=== PATIENT | female | born 1945 | race Caucasian/White ===

== ENCOUNTER → 2017-12-29 | Outpatient (CLI) | payer MEDICARE | END | disposition home or self-care (01) | LOC: RAH 13:33 | PROVIDERS: ATTEND Family Medicine | DX: Z12.31 Encounter for screening mammogram for malignant neoplasm of breast (principal) | CPT/HCPCS: 77067 ==

== ENCOUNTER → 2018-02-27 | Outpatient (CLI) | payer MEDICARE | END | disposition home or self-care (01) | LOC: SHCH 15:33 | PROVIDERS: ATTEND Internal Medicine Cardiovascular Disease | DX: I31.3 Pericardial effusion (noninflammatory) (principal); I25.10 Atherosclerotic heart disease of native coronary artery without angina pectoris; I10 Essential (primary) hypertension; R06.00 Dyspnea, unspecified | CPT/HCPCS: 93306 ==

== ENCOUNTER → 2018-03-15 | Outpatient (CLI) | payer MEDICARE | END | disposition home or self-care (01) | LOC: RAH 09:51 | PROVIDERS: ATTEND Internal Medicine | DX: R19.7 Diarrhea, unspecified (principal) | CPT/HCPCS: 74021 ==

== ENCOUNTER 2018-04-16 07:02 | Observation (INO) | payer MEDICARE ==
[2018-04-12 10:59] LABS: BASOPHILS % (AUTO) 1.3 % (0.0-5.0); EOSINOPHILS % (AUTO) 5.1 % (0.0-8.0); HEMATOCRIT 40.2 % (36-48); LYMPHOCYTES % (AUTO) 18.5 % (21.0-51.0); MEAN CORPUSCULAR HEMOGLOBIN 28.5 pg (27.0-33.0); MEAN CORPUSCULAR HGB CONC 33.5 g/dL (32.0-36.0); MEAN CORPUSCULAR VOLUME 85.2 fL (79-99); MONOCYTES % (AUTO) 9.5 % (3.0-13.0); NEUTROPHILS % (AUTO) 65.6 % (40.0-77.0); NUCLEATED RED BLOOD CELLS 0.1 % (0.0-0.19); PLATELET COUNT (AUTO) 278 K/uL (130-400); RED BLOOD CELL COUNT(AUTO) 4.72 MIL/uL (4.00-5.50); WHITE BLOOD COUNT (AUTO) 5.4 K/uL (4.8-10.8)
[2018-04-12 11:04] LABS: CREATININE 1.5 mg/dL (0.5-1.5); POTASSIUM 4.1 mmol/L (3.5-5.1)
[2018-04-12 11:33] VITALS: BP 136/55
[2018-04-12 11:42] LABS: INR 0.95 (0.85-1.15); PARTIAL THROMBOPLASTIN TIME 27.3 SEC (26.3-35.5)
[2018-04-16] VITALS (15 sets, daily range): BP systolic 126–198; BP diastolic 60–94
[~2018-04-16] VITALS: Ht 157.5 cm; Wt 62.1 kg
[~2018-04-16 07:02] MED LIST: BENIFIBER PO; DOXY50TA2 PO; FAMO40TA7 PO; IBUP-2353 PO; LORA-868 PO; METR60CR TP; TRU BIOTICS PO; VALS1TAB81 PO
[2018-04-16] MEDS ORDERED: CEFAZOLIN SODIUM 1 GM VIAL IVP ONE (08:00)
[2018-04-16] MEDS ORDERED: SODIUM CHLORIDE 0.9% 1000ML 1,000 ML IV SCH (08:00)
[2018-04-16] MEDS ORDERED: BUPIVACAINE/PF 0.25% 50ML VIAL IJ ONE (12:01)
[2018-04-16] MEDS ORDERED: MEPERIDINE-PF 25 MG/ML SYG ONE ×2 (12:02→12:52)
[2018-04-16] MEDS ORDERED: CEFAZOLIN SODIUM 1 GM VIAL ONE (12:02)
[2018-04-16] MEDS ORDERED: MIDAZOLAM HCL 1 MG/ML 2ML VIAL ONE ×2 (12:02→12:52)
[2018-04-16] MEDS ORDERED: LIDOCAINE HCL 1% MDV 50ML VIAL ONE (12:02)
[2018-04-16] MEDS ORDERED: VANCOMYCIN 1GM+NS 250ML 0 ML IV ONE (12:06)
[2018-04-16] MEDS ORDERED: OCTYL 2-CYANOACRYLATE 1 EACH TP ONE (13:37)
[2018-04-16] MEDS ORDERED: ACETAMINOPHEN-CODEINE 300/30MG TAB PO PRN ×2 (14:00)
[2018-04-16] MEDS ORDERED: METRONIDAZOLE 1% TP SCH (14:00)
[2018-04-16] MEDS ORDERED: ONDANSETRON HCL 4 MG/2 ML VIAL IV PRN (14:00)
[2018-04-16] MEDS ORDERED: MORPHINE SULFATE 4 MG/1ML SYG IV PRN (19:15)
[2018-04-16] MEDS ORDERED: MORPHINE SULFATE 2 MG/ML 1ML SYG IV PRN (19:15)
[2018-04-16] MEDS ORDERED: HYDRALAZINE HCL 20 MG/ML VIAL IV PRN (19:15)
[2018-04-16] MEDS ORDERED: ONDANSETRON HCL MDV 20ML 2 MG/ML VIAL IVP PRN (19:15)
[2018-04-16] MEDS ORDERED: ACETAMINOPHEN EXTRA STRENGTH 500 MG TABLET PO PRN (19:15)
[2018-04-16] MEDS ORDERED: TEMAZEPAM 15 MG CAPSULE PO PRN (19:30)
[2018-04-16] MEDS ORDERED: FAMOTIDINE 20MG TAB 20 MG TAB PO SCH (21:00)
[2018-04-17 00:44] VITALS: BP 170/77
[2018-04-17] MEDS ORDERED: SODIUM CHLORIDE 0.9% 1000ML 1,000 ML IV ONE (00:57)
[2018-04-17 03:44] VITALS: BP 151/61
[2018-04-17 05:02] LABS: CREATININE 1.3 mg/dL (0.5-1.5); POTASSIUM 3.7 mmol/L (3.5-5.1)
[2018-04-17] MEDS ORDERED: CEFAZOLIN SODIUM 1 GM VIAL IVP ONE (06:00)
[2018-04-17] MEDS ORDERED: SODIUM CHLORIDE 0.9% 1000ML 1,000 ML IV SCH (06:00)
[2018-04-17 07:00] VITALS: BP 169/61
[2018-04-17] MEDS ORDERED: CEFAZOLIN SODIUM 1 GM VIAL ONE (07:57)
[2018-04-17] MEDS ORDERED: PSEUDOEPHEDRINE PO SCH (09:00)
[2018-04-17] MEDS ORDERED: [UNRECOGNIZED DRUG - OTHER] PO SCH (09:00)
[2018-04-17] MEDS ORDERED: PANTOPRAZOLE SODIUM 40 MG TABLET.DR PO SCH (09:00)
[2018-04-17] MEDS ORDERED: LORATADINE PO SCH (09:00)
[2018-04-17] MEDS ORDERED: METRONIDAZOLE 1% PO SCH (09:00)
[2018-04-17] MEDS ORDERED: DOXYCYCLINE HYCLATE 100 MG TABLET PO SCH (12:00)
[2018-04-17] MEDS ORDERED: TRU BIOTICS PO SCH (21:00)
== END 2018-04-17 11:20 | disposition home or self-care (01) ==
LOC: DAH 07:02 → DAHIP 07:03 → 2AH 16:45
PROVIDERS: ADMIT Internal Medicine Cardiovascular Disease; ATTEND Internal Medicine Cardiovascular Disease
DX: I49.5 Sick sinus syndrome (principal); I10 Essential (primary) hypertension; E78.5 Hyperlipidemia, unspecified; K21.9 Gastro-esophageal reflux disease without esophagitis; Z95.0 Presence of cardiac pacemaker; Z82.49 Family history of ischemic heart disease and other diseases of the circulatory system; Z82.5 Family history of asthma and other chronic lower respiratory diseases; Z79.01 Long term (current) use of anticoagulants
CPT/HCPCS: 33208; 36415 ×2; 71046; 80048 ×2; 85025; 85610; 85730; 93005; 96374; 96375; A4606; C1785; C1894 ×2; C1898 ×2; G0378 ×28; J0360; J0690 ×3; J2175 ×2; J2250 ×2; J3490 ×2; J7030 ×2; 33207; 99156; 99157; J3370

== ENCOUNTER → 2018-12-31 | Outpatient (CLI) | payer MEDICARE | END | disposition home or self-care (01) | LOC: RAH 10:19 | PROVIDERS: ATTEND Family Medicine | DX: Z12.31 Encounter for screening mammogram for malignant neoplasm of breast (principal) | CPT/HCPCS: 77067 ==

== ENCOUNTER → 2020-03-02 | Outpatient (CLI) | payer MEDICARE ==
[~2020-03-02] MED LIST changes: -DOXY50TA2 PO; +DOXY50TA3 PO; -IBUP-2353 PO; +IBUP-2784 PO
== END | disposition home or self-care (01) ==
LOC: RAH 12:49
PROVIDERS: ATTEND Family Medicine
DX: Z12.31 Encounter for screening mammogram for malignant neoplasm of breast (principal); E04.2 Nontoxic multinodular goiter
CPT/HCPCS: 76536; 77067

== ENCOUNTER → 2021-04-07 | Outpatient (CLI) | payer MEDICARE | END | disposition home or self-care (01) | LOC: RAH 09:32 | DX: Z12.31 Encounter for screening mammogram for malignant neoplasm of breast (principal) | CPT/HCPCS: 77067 ==

== ENCOUNTER → 2021-12-24 | Outpatient (CLI) | payer MEDICARE | END | disposition home or self-care (01) | LOC: SHCH 09:56 | PROVIDERS: ATTEND Internal Medicine Cardiovascular Disease | DX: I35.1 Nonrheumatic aortic (valve) insufficiency (principal); I11.9 Hypertensive heart disease without heart failure; E78.5 Hyperlipidemia, unspecified | CPT/HCPCS: 93306 ==

== ENCOUNTER → 2021-12-27 | Outpatient (CLI) | payer MEDICARE ==
[~2021-12-27] VITALS: Ht 157.5 cm; Wt 67.1 kg
[~2021-12-27] MED LIST changes: +REGADENOSON 0.4 MG/5 ML PF SYG IVP SCH
== END | disposition home or self-care (01) ==
LOC: SHCH 08:06
PROVIDERS: ATTEND Internal Medicine Cardiovascular Disease
DX: R06.09 Other forms of dyspnea (principal); I10 Essential (primary) hypertension; E78.5 Hyperlipidemia, unspecified
CPT/HCPCS: 78452; 93017; 96374; A9500 ×2; J2785

== ENCOUNTER → 2021-12-29 | Outpatient (CLI) | payer MEDICARE ==
[~2021-12-29] MED LIST changes: +ALBUTEROL 0.083% 2.5 MG/3 ML INH IH ONE; -REGADENOSON 0.4 MG/5 ML PF SYG IVP SCH
== END | disposition home or self-care (01) ==
LOC: RESP 10:04
PROVIDERS: ATTEND Internal Medicine Cardiovascular Disease
DX: R06.02 Shortness of breath (principal); E78.5 Hyperlipidemia, unspecified; I10 Essential (primary) hypertension
CPT/HCPCS: 94060; 94727; 94729

== ENCOUNTER → 2022-02-07 | Outpatient (CLI) | payer MEDICARE ==
[~2022-02-07] MED LIST changes: -ALBUTEROL 0.083% 2.5 MG/3 ML INH IH ONE
== END | disposition home or self-care (01) ==
LOC: RAH 12:19
PROVIDERS: ATTEND Nurse Practitioner Family
DX: M25.552 Pain in left hip (principal)
CPT/HCPCS: 73502

== ENCOUNTER → 2022-04-11 | Outpatient (CLI) | payer MEDICARE | END | disposition home or self-care (01) | LOC: RAH 15:40 | DX: Z12.31 Encounter for screening mammogram for malignant neoplasm of breast (principal) | CPT/HCPCS: 77067 ==

== ENCOUNTER → 2022-11-08 | Outpatient (CLI) | payer MEDICARE ==
[2022-11-08 12:30] LABS: CREATININE 1.3 mg/dL (0.5-1.5); POTASSIUM 4.3 mmol/L (3.5-5.1)
== END | disposition home or self-care (01) ==
LOC: LAB 08:58
PROVIDERS: ATTEND Physician Assistant
DX: I10 Essential (primary) hypertension (principal)
CPT/HCPCS: 36415; 80048

== ENCOUNTER → 2022-11-22 | Outpatient (CLI) | payer MEDICARE | END | disposition home or self-care (01) | LOC: RAH 11:10 | PROVIDERS: ATTEND Internal Medicine Cardiovascular Disease | DX: I10 Essential (primary) hypertension (principal) | CPT/HCPCS: 75574 ==

== ENCOUNTER → 2023-04-12 | Outpatient (CLI) | payer MEDICARE | END | disposition home or self-care (01) | LOC: RAH 08:34 | PROVIDERS: ATTEND Internal Medicine | DX: Z12.31 Encounter for screening mammogram for malignant neoplasm of breast (principal) | CPT/HCPCS: 77067 ==

== ENCOUNTER → 2023-05-22 | Outpatient (CLI) | payer MEDICARE | END | disposition home or self-care (01) | LOC: RAH 10:21 | PROVIDERS: ATTEND Internal Medicine | DX: R92.30 Dense breasts, unspecified (principal) ==

== ENCOUNTER → 2024-08-28 | Outpatient (CLI) | payer MEDICARE ==
--- NOTE | 2024-08-28 13:18 | HMCIMG ---
US THYROID/NECK HISTORY: Disorder of esophagus COMPARISON: None TECHNIQUE: Thyroid ultrasound study was performed. FINDINGS: Right thyroid lobe measures 3.9 x 1.4 x 0.8 cm. Left thyroid lobe measures 3.1 x 0.6 x 0.9 cm. No discrete thyroid nodule is seen. Right lower pole renal calcifications are seen measuring 12 mm and 6 mm each. There is left lower pole thyroid cyst measuring 8 x 6 mm. IMPRESSION: 1. No discrete thyroid nodule is seen.
== END | disposition home or self-care (01) ==
LOC: RAH 11:22
PROVIDERS: ATTEND Internal Medicine
DX: E04.1 Nontoxic single thyroid nodule (principal); N28.89 Other specified disorders of kidney and ureter; K23 Disorders of esophagus in diseases classified elsewhere
CPT/HCPCS: 76536

== ENCOUNTER → 2024-09-18 | Outpatient (CLI) | payer MEDICARE ==
--- NOTE | 2024-09-18 10:49 | HMCIMG ---
CHEST 2VWS REASON: UPPER RESPIRATORY INFECTION COMPARISON: 10/21/2021. FINDINGS: Lungs are clear. Heart size is normal. There is no pulmonary vascular congestion. Mediastinum and bony thorax appear unremarkable. Transvenous pacemaker wires are in good position. No airspace opacities. Degenerative changes present thoracic spine. IMPRESSION: No active pulmonary disease.
== END | disposition home or self-care (01) ==
LOC: RAH 08:59
PROVIDERS: ATTEND Nurse Practitioner Family
DX: J06.9 Acute upper respiratory infection, unspecified (principal); M47.814 Spondylosis without myelopathy or radiculopathy, thoracic region
CPT/HCPCS: 71046